=== PATIENT | female | born 1980 | race Caucasian/White ===

== ENCOUNTER 2020-07-02 00:13 | Inpatient (IN) | payer MEDICAID ==
[~2020-07-02] VITALS: Ht 144.8 cm; Wt 63.0 kg
[2020-07-02] VITALS (21 sets, daily range): BP systolic 82–111; BP diastolic 50–71
[~2020-07-02 00:13] MED LIST: ALBU6.7H3 IH; ALBU8.5H8 IH; IBUP-1984 PO; PSEU-225 PO
[2020-07-02] MEDS ORDERED: ondansetron/PF 4mg/2ml inj IV ONE (00:45)
[2020-07-02] MEDS ORDERED: normal saline 1000ML IV soln IVB ONE (00:45)
[2020-07-02] MEDS ORDERED: ketorolac trometh. 30mg/ml inj. IV ONE (00:45)
[2020-07-02 01:00] LABS: ALANINE AMINOTRANSFERASE 38 U/L (12-78); ALBUMIN 3.2 G/DL (3.4-5.0); ALBUMIN/GLOBULIN RATIO 0.6 (1.1-1.5); ALKALINE PHOSPHATASE 101 IU/L (46-116); ANION GAP 13 (8-16); ASPARTATE AMINO TRANSFERASE 37 U/L (10-37); BILIRUBIN,TOTAL 0.5 MG/DL (0.1-1.0); BLOOD UREA NITROGEN 12 MG/DL (7-18); BUN/CREATININE RATIO 8.5 (6.6-38.0); CALCIUM 8.3 MG/DL (8.5-10.1); CHLORIDE 103 MMOL/L (99-107); CREATININE 1.42 MG/DL (0.40-0.90); GLUCOSE 126 MG/DL (70-104); LIPASE 51 U/L (73-393); POTASSIUM 4.4 MMOL/L (3.5-5.1); SODIUM 138 MMOL/L (135-145); TOTAL CARBON DIOXIDE 22.1 MMOL/L (24-32); TOTAL PROTEIN 8.5 G/DL (6.4-8.2); eGFR 41 ML/MIN
[2020-07-02] MEDS: morphine 4 MG/ML inj SYRINge IV PRN ×2 (01:01→02:00)
[2020-07-02 01:11] LABS: URINE HCG NEGATIVE (NEG)
[2020-07-02 01:15] LABS: BASOPHILS % (AUTO) 0.1 % (0-1); EOSINOPHILS % (AUTO) 0 % (0-6); HEMATOCRIT 40.7 % (35.0-45.0); LYMPHOCYTES # (AUTO) 0.3 X10'3 (1.1-4.8); LYMPHOCYTES % (AUTO) 1.1 % (21-51); MEAN CORPUSCULAR HEMOGLOBIN 31.9 PG (27.0-31.0); MEAN CORPUSCULAR HGB CONC 34.3 g/dL (33.0-36.5); MEAN CORPUSCULAR VOLUME 92.9 FL (78-98); MEAN PLATELET VOLUME 7.7 FL (7.4-10.4); MONOCYTES # (AUTO) 0.4 X10'3 (0-0.9); MONOCYTES % (AUTO) 1.7 % (2-12); NEUTROPHILS # (AUTO) 22.9 X10'3 (1.8-7.7); NEUTROPHILS % (AUTO) 97.1 % (42-75); PLATELET COUNT 355 X10'3 (140-440); RED BLOOD COUNT 4.39 X10'6 (4.20-5.60); RED CELL DISTRIBUTION WIDTH 14.6 % (11.5-14.5); WHITE BLOOD COUNT 23.6 X10'3 (4.5-11.0)
[2020-07-02] MEDS ORDERED: CefTRIAXone 2gm/D5W 50ml BAG 50 ML IV ONE (01:15)
[2020-07-02 01:21] LABS: CLARITY,URINE SLIGHTLY CLOUDY (Clear); COLOR,URINE YELLOW (Yellow); GLUCOSE, URINE NEGATIVE (Neg); KETONES,URINE TRACE mg/dl (Neg); LEUKOCYTE ESTERASE ,URINE TRACE (Neg); NITRITES, URINE NEGATIVE (Neg); OCCULT BLOOD,URINE LARGE (Neg); PH,URINE 5.5 (4.8-8.0); PROTEIN,URINE 30 mg/dl (Neg)
[2020-07-02 01:29] LABS: UA COLLECTION TYPE CLN CATCH MIDSTREAM
[2020-07-02 01:33] LABS: BACTERIA,URINE FEW /HPF (Neg); MUCUS STRANDS FEW /LPF (Neg); RBC,URINE 0-2 /HPF (0-2); SQUAMOUS EPITHELIAL CELL,UR FEW /LPF (FEW); STARCH,URINE FEW /HPF (NEGATIVE); WBC,URINE 0-4 /HPF (0-4)
[2020-07-02] MEDS ORDERED: morphine 4 MG/ML inj SYRINge IV PRN ×2 (02:35→08:50)
[2020-07-02] MEDS ORDERED: magnesium 4gm in 100ml NS 100 ML IV PRN (02:40)
[2020-07-02] MEDS ORDERED: ondansetron/PF 4mg/2ml inj IV PRN ×2 (02:40→08:50)
[2020-07-02] MEDS ORDERED: potassium CL 10mEq/100ml bag 100 ML IV PRN ×2 (02:40)
[2020-07-02] MEDS ORDERED: potassium Cl 20 mEq SR tablet PO PRN ×2 (02:40)
[2020-07-02] MEDS ORDERED: magnesium Cl slow-release 64mg tablet PO PRN (02:40)
[2020-07-02] MEDS ORDERED: mag hydrox/Alum hydrox/simeth 30ml oral suspension PO PRN (02:40)
[2020-07-02] MEDS ORDERED: magnesium 2GM in 50ml NS 50 ML IV PRN (02:40)
[2020-07-02] MEDS ORDERED: morphine 2 MG/ML inj. syringe IV PRN ×2 (02:40→08:50)
[2020-07-02] MEDS ORDERED: magnesium hydroxide 30ml (MOM) UD suspension PO PRN (02:40)
[2020-07-02] MEDS: normal saline 1000ml 1,000 ML IV SCH ×3 (02:55→20:23)
[2020-07-02 04:05] LABS: PLATELET ESTIMATE NORMAL; TOTAL CELLS COUNTED 100
--- NOTE | 2020-07-02 06:37 | NUR ---
Problems reprioritized. Patient report given, questions answered & plan of care reviewed with Gi CALLOWAY. Addendum: 07/02/20 at 0637 by Winifred Bingham RN Amended: Links added.
--- NOTE | 2020-07-02 06:48 | NUR ---
Patient in room [facility]. I have received report from chantel gutierrez and had the opportunity to ask questions and assume patient care.
[2020-07-02] MEDS: K and/or MAG REPLACEMENT MC SCH ×2 (08:00→20:00)
[2020-07-02] MEDS ORDERED: BUPIVAcaine/PF 2.5 mg/ml (0.25%) 30ml vial ONE (08:09)
--- NOTE | 2020-07-02 08:34 | NUR ---
patient prepared for OR. seen by Dr stewart. taken to surgery 0835.
[2020-07-02] MEDS ORDERED: sevoflurane 250ml liquid IH ONE (08:45)
[2020-07-02] MEDS ORDERED: fentaNYL/PF 50MCG/1 ML 2ML syringe ONE ×2 (08:49→09:04)
[2020-07-02] MEDS ORDERED: proCHLORperazine 10 MG/2 ml inj IV PRN (08:50)
[2020-07-02] MEDS ORDERED: meperidine/PF 25mg/ml syringe IV PRN ×2 (08:50)
[2020-07-02] MEDS ORDERED: ringers solution, lacted 1,000 ML IV SCH (08:50)
[2020-07-02] MEDS ORDERED: midazolam 2 mg/2 ml injection ONE (08:50)
--- NOTE | 2020-07-02 09:40 | NUR ---
Received from OR via [facility], accompanied by Anesthesiologist DR MARIA and report given by Anesthesiologist. PT DROWSY, PAINFUL, DR MARIA GAVE PT PAIN MEDICATION 50 MCG FENTANYL, PT RECEIVING ALBUMIN 5% FOR BP, SEE VS. 500 ML OF NS BOLUS GIVEN PER DR MARIA ORDERS, PT AWAKE, BECAME STRIDORIS, CALLED AND RECEIVED ORDERS, PAIN MEDICATION GIVEN AND W/SOME IMPROVEMENT TO STRIDOR, RT HERE BREATHING TX GIVEN, PT BACK TO BASELINE, PAIN IMPROVING. Addendum: 07/02/20 at 1056 by Sarah Carlson RN Amended: Links added.
[2020-07-02] MEDS ORDERED: propofol inj 20 ML IV ONE (09:54)
[2020-07-02] MEDS ORDERED: LIDOcaine 2% (20mg/ml) 5ml vial ONE (09:54)
[2020-07-02] MEDS ORDERED: ondansetron/PF 4mg/2ml inj ONE (09:55)
[2020-07-02] MEDS ORDERED: rocuronium 10mg/ml inj IV ONE (09:55)
[2020-07-02] MEDS ORDERED: ePHEDrine 50MG/ML INJ. ONE (09:55)
[2020-07-02] MEDS ORDERED: dexamethasone sod phosphate 4mg/ml inj. ONE (09:55)
[2020-07-02] MEDS ORDERED: glycopyrrolate 0.2mg/ml inj ONE (09:55)
[2020-07-02] MEDS ORDERED: neostigmine methylsulfate 1 MG/ML 10ml vial ONE (09:55)
[2020-07-02] MEDS ORDERED: phenylephrine 10mg/ml inj. ONE (09:55)
[2020-07-02] MEDS ORDERED: ipratropium/albuterol 3ml nebule NEB PRN (10:05)
[2020-07-02] MEDS: meperidine/PF 25mg/ml syringe IV PRN ×2 (10:06→10:23)
[2020-07-02] MEDS ORDERED: acetaminophen 1,000mg/100ml IV 100 ML IV ONE (10:10)
[2020-07-02] MEDS: metroNIDAZOLE-Flagyl 500mg/NS 100 ML IV SCH ×3 (10:37→19:58)
--- NOTE | 2020-07-02 11:07 | NUR ---
Patient in room [facility]. I have received report from Sarah CALLOWAY and had the opportunity to ask questions awaiting arrival
--- NOTE | 2020-07-02 11:10 | NUR ---
Report called to receiving nurse. Transferred via GURNEY, NO Belongings, PT ABLE TO WALK FROM GURNEY TO BED W/O ANY PROBLEMS, BLL, CALL LIGHT GIVEN TO PT, PT ORIENTED AND SAFE, RECEIVING RN AT BEDSIDE. Special Issues communicated to receiving nurse. YES. Addendum: 07/02/20 at 1133 by Sarah Carlson RN Amended: Links added.
--- NOTE | 2020-07-02 11:30 | NUR ---
patient settled back into room. c/o pain in lower abdomen but does not want to take anything right now. VSS. will continue to monitor.
[2020-07-02] MEDS: levoFLOXACIN-Levaquin 750MG/D5 150 ML IV SCH (13:36)
[2020-07-02] MEDS ORDERED: metroNIDAZOLE-Flagyl 500mg/NS 100 ML IV SCH (14:00)
[2020-07-02] MEDS ORDERED: Chloraseptic (Phenol) Spray 177ml MM PRN (18:05)
--- NOTE | 2020-07-02 18:38 | NUR ---
patient able to ambulate 300ft . requested ibuprohen and throat spray order received from DR Alvarado. voiding in bathroom. three lap sites CDI. report given to chantel CALLOWAY
[2020-07-02] MEDS: ibuprofen 200mg tablet PO PRN (20:13)
[2020-07-03] VITALS: BP 87/57
[2020-07-03] MEDS: metroNIDAZOLE-Flagyl 500mg/NS 100 ML IV SCH ×4 (02:18→19:15)
[2020-07-03 05:39] LABS: EOSINOPHILS % (AUTO) 0 % (0-6); HEMOGLOBIN 10.4 g/dl (12.0-16.0); RED CELL DISTRIBUTION WIDTH 14.5 % (11.5-14.5); WHITE BLOOD COUNT 21.3 X10'3 (4.5-11.0)
[2020-07-03 05:42] LABS: BASOPHILS % (AUTO) 0.2 % (0-1); HEMATOCRIT 30.7 % (35.0-45.0); LYMPHOCYTES # (AUTO) 1.1 X10'3 (1.1-4.8); MEAN CORPUSCULAR HEMOGLOBIN 31.6 PG (27.0-31.0); MEAN PLATELET VOLUME 8.1 FL (7.4-10.4); MONOCYTES % (AUTO) 4.6 % (2-12); NEUTROPHILS # (AUTO) 19.2 X10'3 (1.8-7.7); NEUTROPHILS % (AUTO) 90.2 % (42-75); PLATELET COUNT 267 X10'3 (140-440)
[2020-07-03 06:15] LABS: PLATELET ESTIMATE NORMAL; TOTAL CELLS COUNTED 100
--- NOTE | 2020-07-03 06:34 | NUR ---
Problems reprioritized. Patient report given, questions answered & plan of care reviewed with Marcela CALLOWAY. Addendum: 07/03/20 at 0634 by Winifred Bingham RN Amended: Links added.
[2020-07-03 07:00] VITALS: BP 98/75
--- NOTE | 2020-07-03 07:01 | NUR ---
Patient in room [facility] 350B. I have received report from ELLI FREEDMAN and had the opportunity to ask questions and assume patient care.
--- NOTE | 2020-07-03 07:02 | NUR ---
PATIENT HAS REQUESTED TO GO OUT FOR A SMOKE OR WANTS TO LEAVE, EDUCATED TO PAIN THAT WE DO NOT ALLOW PATIENTS TO GO OUT AND SMOKE AND WITH A RUPTURED APPENDIX THE [facility] STAY IS THREE DAYS TO MONITOR FOR COMPLICATIONS. PATIENT VERBALIZED UNDERSTANDING AND WILL WAIT FOR A DR TO SEE HER.
[2020-07-03] MEDS ORDERED: LORazepam 0.5 MG tablet PO ONE (07:10)
[2020-07-03 07:11] LABS: ALANINE AMINOTRANSFERASE 25 U/L (12-78); ALBUMIN/GLOBULIN RATIO 0.7 (1.1-1.5); ALKALINE PHOSPHATASE 75 IU/L (46-116); ANION GAP 10 (8-16); ASPARTATE AMINO TRANSFERASE 25 U/L (10-37); BILIRUBIN,TOTAL 0.2 MG/DL (0.1-1.0); BLOOD UREA NITROGEN 12 MG/DL (7-18); BUN/CREATININE RATIO 13.2 (6.6-38.0); CALCIUM 7.8 MG/DL (8.5-10.1); CHLORIDE 110 MMOL/L (99-107); CREATININE 0.91 MG/DL (0.40-0.90); GLUCOSE 90 MG/DL (70-104); MAGNESIUM 2.3 MG/DL (1.5-2.4); POTASSIUM 3.8 MMOL/L (3.5-5.1); SODIUM 142 MMOL/L (135-145); TOTAL CARBON DIOXIDE 22.4 MMOL/L (24-32); TOTAL PROTEIN 7.1 G/DL (6.4-8.2); eGFR 68 ML/MIN
[2020-07-03] MEDS: K and/or MAG REPLACEMENT MC SCH ×2 (08:00→20:00)
[2020-07-03] MEDS: levoFLOXACIN-Levaquin 750MG/D5 150 ML IV SCH (08:52)
[2020-07-03 11:00] VITALS: BP 99/61
[2020-07-03] MEDS ORDERED: LORazepam 0.5 MG tablet PO PRN (12:10)
[2020-07-03] MEDS: ibuprofen 200mg tablet PO PRN ×2 (14:58→20:59)
--- NOTE | 2020-07-03 18:00 | NUR ---
Patient in room [facility]. I have received report from Marcela CALLOWAY and had the opportunity to ask questions and assume patient care.
--- NOTE | 2020-07-03 18:15 | NUR ---
Problems reprioritized. Patient report given, questions answered & plan of care reviewed with ELLI RONDON.
[2020-07-03] MEDS: lactobacillus rhamnosus 10,000 MMU CELLS/CAPSULE PO SCH (19:17)
[2020-07-03 20:00] VITALS: BP 92/58
[2020-07-03] MEDS: acetaminophen 325mg tablet PO PRN (21:07)
[2020-07-04 00:21] VITALS: BP 97/56
[2020-07-04] MEDS: metroNIDAZOLE-Flagyl 500mg/NS 100 ML IV SCH ×2 (01:38→08:12)
[2020-07-04 05:56] LABS: BASOPHILS # (AUTO) 0.1 X10'3 (0-0.2); BASOPHILS % (AUTO) 0.8 % (0-1); EOSINOPHILS # (AUTO) 0.3 X10'3 (0-0.9); EOSINOPHILS % (AUTO) 2.4 % (0-6); HEMATOCRIT 32.8 % (35.0-45.0); HEMOGLOBIN 11.1 g/dl (12.0-16.0); LYMPHOCYTES # (AUTO) 1.3 X10'3 (1.1-4.8); LYMPHOCYTES % (AUTO) 10.5 % (21-51); MEAN CORPUSCULAR HEMOGLOBIN 31.4 PG (27.0-31.0); MEAN CORPUSCULAR HGB CONC 33.8 g/dL (33.0-36.5); MEAN CORPUSCULAR VOLUME 93.1 FL (78-98); MEAN PLATELET VOLUME 8.3 FL (7.4-10.4); MONOCYTES # (AUTO) 0.5 X10'3 (0-0.9); MONOCYTES % (AUTO) 3.8 % (2-12); NEUTROPHILS # (AUTO) 10.4 X10'3 (1.8-7.7); NEUTROPHILS % (AUTO) 82.5 % (42-75); PLATELET COUNT 289 X10'3 (140-440); RED BLOOD COUNT 3.53 X10'6 (4.20-5.60); RED CELL DISTRIBUTION WIDTH 14.9 % (11.5-14.5); WHITE BLOOD COUNT 12.6 X10'3 (4.5-11.0)
[2020-07-04 06:00] VITALS: BP 99/59
--- NOTE | 2020-07-04 06:09 | NUR ---
Problems reprioritized. Patient report given, questions answered & plan of care reviewed with Marcela CALLOWAY.
--- NOTE | 2020-07-04 06:10 | NUR ---
Patient in room [facility] 350B. I have received report from ELLI RONDON and had the opportunity to ask questions and assume patient care.
[2020-07-04 06:26] LABS: ALANINE AMINOTRANSFERASE 97 U/L (12-78); ALBUMIN 2.8 G/DL (3.4-5.0); ALBUMIN/GLOBULIN RATIO 0.7 (1.1-1.5); ALKALINE PHOSPHATASE 160 IU/L (46-116); ANION GAP 10 (8-16); ASPARTATE AMINO TRANSFERASE 154 U/L (10-37); BILIRUBIN,TOTAL 0.3 MG/DL (0.1-1.0); BLOOD UREA NITROGEN 14 MG/DL (7-18); BUN/CREATININE RATIO 15.6 (6.6-38.0); CALCIUM 8.5 MG/DL (8.5-10.1); CHLORIDE 111 MMOL/L (99-107); GLUCOSE 68 MG/DL (70-104); POTASSIUM 3.7 MMOL/L (3.5-5.1); SODIUM 144 MMOL/L (135-145); TOTAL CARBON DIOXIDE 22.9 MMOL/L (24-32); TOTAL PROTEIN 6.9 G/DL (6.4-8.2); eGFR 69 ML/MIN
[2020-07-04] MEDS: K and/or MAG REPLACEMENT MC SCH (08:00)
[2020-07-04] MEDS: lactobacillus rhamnosus 10,000 MMU CELLS/CAPSULE PO SCH (08:12)
[2020-07-04] MEDS ORDERED: HYDR-4383 PO (09:59)
[2020-07-04] MEDS ORDERED: CIPR-230 PO (09:59)
[2020-07-04] MEDS ORDERED: METR-159 PO (09:59)
[2020-07-04 11:00] VITALS: BP 97/64
[2020-07-04] MEDS: acetaminophen 325mg tablet PO PRN (12:23)
--- NOTE | 2020-07-04 14:10 | NUR ---
PATIENT STABLE AND APPROPRIATE FOR DISCHARGE, IV TAKEN OUT, EDUCATION GIVEN, NEW MEDS E-SCRIPTED TO PREFERRED PHARMACY, SCRIPT FOR [facility]CO SENT WITH PATIENT, ALL BELONGINGS SENT WITH PATIENT, PATIENT TAKEN BY WHEELCHAIR TO AN AWAITING CAR WHERE FAMILY MEMBER WILL TAKE PATIENT HOME
== END 2020-07-04 14:10 | disposition home or self-care (01) | DRG 710 ==
LOC: ER 00:14 → ED HOLD 02:38 → SUR 3N 03:20
PROVIDERS: ADMIT Family Medicine; ATTEND Family Medicine
PROC: 0DTJ4ZZ Resection of Appendix, Percutaneous Endoscopic Approach (ICD-10-PCS; principal; 2020-07-02 08:45)
DX: A41.9 Sepsis, unspecified organism (principal); K35.33 Acute appendicitis with perforation, localized peritonitis, and gangrene, with abscess; Z91.040 Latex allergy status; Z88.0 Allergy status to penicillin; J45.909 Unspecified asthma, uncomplicated; N17.9 Acute kidney failure, unspecified; N20.0 Calculus of kidney; F17.200 Nicotine dependence, unspecified, uncomplicated; F41.9 Anxiety disorder, unspecified
CPT/HCPCS: 36415; 74176; 80053; 81001; 81025; 82948; 83690; 83735; 85007; 85025; 87081; 87088; 94640; 94760; 96365; 96375; 99285; A4215; A4618; A7000; G0378; J0131; J0696; J1100; J1885; J1956; J2001; J2175; J2250; J2270; J2370; J2405; J2704; J2710; J3010; J3490; J7030; J7120

== ENCOUNTER 2020-07-13 10:50 | Emergency (ER) | payer MEDICAID ==
[~2020-07-13] VITALS: Ht 149.9 cm; Wt 65.5 kg
[~2020-07-13 10:50] MED LIST changes: -ALBU6.7H3 IH; -ALBU8.5H8 IH; +CIPR-230 PO; +HYDR-4383 PO; +METR-159 PO; -PSEU-225 PO
[2020-07-13 11:33] LABS: BASOPHILS # (AUTO) 0.1 X10'3 (0-0.2); EOSINOPHILS # (AUTO) 0.2 X10'3 (0-0.9); EOSINOPHILS % (AUTO) 1.8 % (0-6); LYMPHOCYTES # (AUTO) 2.8 X10'3 (1.1-4.8); MEAN CORPUSCULAR HEMOGLOBIN 31.3 PG (27.0-31.0); MONOCYTES # (AUTO) 0.9 X10'3 (0-0.9)
[2020-07-13 11:35] LABS: BASOPHILS % (AUTO) 0.7 % (0-1); HEMATOCRIT 41.2 % (35.0-45.0); LYMPHOCYTES % (AUTO) 20.8 % (21-51); MEAN CORPUSCULAR HGB CONC 34.1 g/dL (33.0-36.5); MEAN CORPUSCULAR VOLUME 91.8 FL (78-98); MEAN PLATELET VOLUME 7.6 FL (7.4-10.4); MONOCYTES % (AUTO) 7.1 % (2-12); NEUTROPHILS # (AUTO) 9.2 X10'3 (1.8-7.7); NEUTROPHILS % (AUTO) 69.6 % (42-75); PLATELET COUNT 676 X10'3 (140-440); RED BLOOD COUNT 4.48 X10'6 (4.20-5.60); WHITE BLOOD COUNT 13.3 X10'3 (4.5-11.0)
[2020-07-13 11:45] LABS: ALANINE AMINOTRANSFERASE 36 U/L (12-78); ALBUMIN 3.6 G/DL (3.4-5.0); ALBUMIN/GLOBULIN RATIO 0.7 (1.1-1.5); ALKALINE PHOSPHATASE 119 IU/L (46-116); ANION GAP 7 (8-16); ASPARTATE AMINO TRANSFERASE 19 U/L (10-37); BILIRUBIN,TOTAL 0.4 MG/DL (0.1-1.0); BLOOD UREA NITROGEN 14 MG/DL (7-18); BUN/CREATININE RATIO 16.9 (6.6-38.0); CALCIUM 8.9 MG/DL (8.5-10.1); CHLORIDE 100 MMOL/L (99-107); CREATININE 0.83 MG/DL (0.40-0.90); GLUCOSE 93 MG/DL (70-104); LIPASE 153 U/L (73-393); POTASSIUM 4.1 MMOL/L (3.5-5.1); SODIUM 135 MMOL/L (135-145); TOTAL CARBON DIOXIDE 28.3 MMOL/L (24-32); eGFR 76 ML/MIN
[2020-07-13] MEDS ORDERED: morphine 4 MG/ML inj SYRINge IV ONE (12:15)
[2020-07-13 12:30] LABS: URINE HCG NEGATIVE (NEG)
[2020-07-13 12:35] LABS: CLARITY,URINE SLIGHTLY CLOUDY (Clear); COLOR,URINE STRAW (Yellow); GLUCOSE, URINE NEGATIVE (Neg); KETONES,URINE NEGATIVE (Neg); LEUKOCYTE ESTERASE ,URINE TRACE (Neg); NITRITES, URINE NEGATIVE (Neg); OCCULT BLOOD,URINE TRACE-INTACT (Neg); PROTEIN,URINE NEGATIVE (Neg); UROBILINOGEN,URINE 0.2 E.U/dL (0.2-1.0)
[2020-07-13] MEDS ORDERED: iohexol 300mg/ml 100ml inj. ONE (12:36)
[2020-07-13 12:43] LABS: UA COLLECTION TYPE VOIDED
[2020-07-13 12:48] LABS: SQUAMOUS EPITHELIAL CELL,UR MODERATE /LPF (FEW); TRANSITIONAL EPI CELLS,URINE FEW /HPF
[2020-07-13 12:50] LABS: BACTERIA,URINE FEW /HPF (Neg); RBC,URINE 0-2 /HPF (0-2); WBC,URINE 0-4 /HPF (0-4)
[2020-07-13 12:51] LABS: YEAST FEW /HPF (NEGATIVE)
[2020-07-13] MEDS ORDERED: clindamycin 600mg/D5W 50ml 50 ML IV ONE (13:50)
[2020-07-13] MEDS ORDERED: levoFLOXACIN-Levaquin 500mg/D5 100 ML IV ONE (13:50)
[2020-07-13] MEDS ORDERED: ciprofloxacin lact 400MG/200ML 200 ML IV SCH ×2 (14:43→14:52)
[2020-07-13] MEDS ORDERED: CIPR-230 PO (14:51)
[2020-07-13] MEDS ORDERED: METR500T PO ×2 (14:51→16:36)
[2020-07-13] MEDS ORDERED: ketorolac trometh. 30mg/ml inj. IV ONE (15:05)
[2020-07-13] MEDS ORDERED: dexamethasone sod phosphate 10mg/ml inj IV STA (15:35)
[2020-07-13] MEDS ORDERED: famotidine/PF 10 mg/ml inj IV ONE (15:35)
--- NOTE | 2020-07-13 15:39 | NUR ---
Started Cipro antibiotic, pt had immediate local reaction with itching and redness. Infusion stopped and Dr Gilmore notified. New orders received.
--- NOTE | 2020-07-13 16:07 | NUR ---
PATIENT RECEIVED DECADRON OVER 5 MIN. IVP AND PEPCID IVP
[2020-07-13 16:45] VITALS: BP 109/78
--- NOTE | 2020-07-13 16:45 | NUR ---
PT HAS D/C WITH RX FOR CIPRO. PER DR HATTIE KHAN FOR PATIENT TO CONTINUE AT HOME SHE HAD A LOCALIZED REACTION WITH IV CIPRO. PT EDUCATED ON S/S OF ALLERGIC REACTION WHO VERABLIZED UNDERSTANDING.
== END 2020-07-13 16:47 | disposition home or self-care (01) ==
LOC: ER 10:50
DX: K35.32 Acute appendicitis with perforation, localized peritonitis, and gangrene, without abscess (principal); R10.31 Right lower quadrant pain; J45.909 Unspecified asthma, uncomplicated; Z72.89 Other problems related to lifestyle; Z88.0 Allergy status to penicillin; Z91.040 Latex allergy status; Z79.2 Long term (current) use of antibiotics; Z79.899 Other long term (current) drug therapy
CPT/HCPCS: 36415; 74177; 80053; 81001; 81025; 83690; 85025; 87088; 96365; 96366; 96368; 96375; 99285; J0744; J1100; J1885; J3490; Q9967

== ENCOUNTER → 2020-10-29 | Emergency (ER) | payer MEDICAID ==
[~2020-10-29] VITALS: Ht 149.9 cm; Wt 67.1 kg
[~2020-10-29] MED LIST changes: -CIPR-230 PO; -METR-159 PO; +METR500T PO; +iohexol 300mg/ml 100ml inj. ONE; +levoTHYROXINE sod inj. 100mcg/5 ml vial IV ONE; +levoTHYROXINE sod inj. 100mcg/5 ml vial IV SCH; +normal saline 1000ML IV soln IVB ONE
[2020-10-29 10:46] LABS: BASOPHILS # (AUTO) 0.1 X10'3 (0-0.2); BASOPHILS % (AUTO) 1.1 % (0-1); EOSINOPHILS # (AUTO) 0.6 X10'3 (0-0.9); EOSINOPHILS % (AUTO) 6.8 % (0-6); HEMATOCRIT 39.3 % (35.0-45.0); HEMOGLOBIN 13.3 g/dl (12.0-16.0); LYMPHOCYTES % (AUTO) 35.9 % (21-51); MEAN CORPUSCULAR HEMOGLOBIN 31.1 PG (27.0-31.0); MEAN CORPUSCULAR HGB CONC 33.8 g/dL (33.0-36.5); MEAN PLATELET VOLUME 7.4 FL (7.4-10.4); MONOCYTES # (AUTO) 0.3 X10'3 (0-0.9); MONOCYTES % (AUTO) 3.8 % (2-12); NEUTROPHILS # (AUTO) 4.3 X10'3 (1.8-7.7); NEUTROPHILS % (AUTO) 52.4 % (42-75); PLATELET COUNT 337 X10'3 (140-440); RED BLOOD COUNT 4.27 X10'6 (4.20-5.60); RED CELL DISTRIBUTION WIDTH 15.2 % (11.5-14.5); WHITE BLOOD COUNT 8.3 X10'3 (4.5-11.0)
[2020-10-29 10:55] LABS: PARTIAL THROMBOPLASTIN TIME 29 SECONDS (22-32)
[2020-10-29 11:01] LABS: ALANINE AMINOTRANSFERASE 45 U/L (12-78); ALBUMIN 3.5 G/DL (3.4-5.0); ALBUMIN/GLOBULIN RATIO 0.6 (1.1-1.5); ALKALINE PHOSPHATASE 73 IU/L (46-116); ANION GAP 11 (8-16); BILIRUBIN,TOTAL 0.5 MG/DL (0.1-1.0); BLOOD UREA NITROGEN 14 MG/DL (7-18); BUN/CREATININE RATIO 13.1 (6.6-38.0); CALCIUM 8.7 MG/DL (8.5-10.1); CHLORIDE 104 MMOL/L (99-107); CREATININE 1.07 MG/DL (0.40-0.90); GLUCOSE 79 MG/DL (70-104); SODIUM 142 MMOL/L (135-145); TOTAL CARBON DIOXIDE 26.8 MMOL/L (24-32); TOTAL PROTEIN 8.9 G/DL (6.4-8.2); eGFR 57 ML/MIN
[2020-10-29 11:03] LABS: POTASSIUM 4.8 MMOL/L (3.5-5.1)
[2020-10-29 11:12] LABS: CLARITY,URINE CLOUDY (Clear); COLOR,URINE RED (Yellow)
[2020-10-29 11:14] LABS: ASPARTATE AMINO TRANSFERASE 72 U/L (10-37)
[2020-10-29 11:16] LABS: UA COLLECTION TYPE CLN CATCH MIDSTREAM
[2020-10-29 11:19] LABS: BACTERIA,URINE FEW /HPF (Neg); MUCUS STRANDS NONE SEEN /LPF (Neg); RBC,URINE TNTC /HPF (0-2); SQUAMOUS EPITHELIAL CELL,UR FEW /LPF (FEW)
[2020-10-29 13:54] VITALS: BP 110/88
--- NOTE | 2020-10-29 14:03 | NUR ---
report to anthony gutierrez at [facility] [id number]. patient is being transfered via ems for ent follow up for enlarged thyroid. report ot medics. patient to [facility] via gurney via ambulance
== END | disposition short-term general hospital (02) ==
LOC: ER 09:35
DX: E04.9 Nontoxic goiter, unspecified (principal); E03.9 Hypothyroidism, unspecified; Z20.822 Contact with and (suspected) exposure to COVID-19; R94.6 Abnormal results of thyroid function studies; R79.1 Abnormal coagulation profile; J45.909 Unspecified asthma, uncomplicated; Z72.89 Other problems related to lifestyle; Z88.0 Allergy status to penicillin; Z91.040 Latex allergy status; Z79.899 Other long term (current) drug therapy
CPT/HCPCS: 36415; 70491; 76536; 80053; 81001; 84439; 84443; 85025; 85610; 85730; 87088; 87635; 96361; 96374; 99285; C9803; J7030; Q9967